=== PATIENT | female | born 2000 | race African-American/Black ===

== ENCOUNTER 2022-08-07 15:17 | Emergency (ER) | payer MEDICAID, SELFPAY ==
--- NOTE | ~2022-08-07 | US_ITS ---
EXAMINATION: ULTRASOUND CLINICAL INFORMATION: Right lower quadrant and pelvic pain COMPARISON: None TECHNIQUE: Transabdominal scanning was performed. FINDINGS: A gestational sac is present within the uterus. A yolk sac is identified and a pole with a crown-rump length of 1.8 cm is seen. A normal heart rate of 163/m was noted. Gestational age by ultrasound is estimated at 8 weeks 3 days with an YOLANDA of 03/16/2023. The right ovary measured 3.6 x 3.0 x 2.6 cm and appeared normal. The left ovary measured 3.2 x 3.1 x 2.7 cm which includes a 2.1 x 1.9 x 2.0 cm corpus luteal cyst. No free fluid is present in the cul-de-sac. US/US OB limited IMPRESSION: Early gestation with mean gestational age estimated at 8 weeks 3 days with YOLANDA of 03/16/2023
[2022-08-07 15:38] VITALS: BP 109/72; PULSE 65
[2022-08-07 15:43] VITALS: BP 114/57; PULSE 64; RESP 16; TEMP 37.3; O2SAT 100; BMI 27.3
[2022-08-07] MEDS: 0.9 % Sodium Chloride 1,000 ML 999 ML IV (17:04)
[2022-08-07] MEDS: ondansetron HCL 4 MG/2 ML VIAL IVPUSH ×2 (17:20→19:42)
--- NOTE | 2022-08-07 17:24 | ED.NAVMDI ---
HPI - Nausea/Vomiting/Diarrhea General Chief complaint: Nausea/Vomiting/Diarrhea Stated complaint: N/V/JARRETT/CP,RECENT + TEST PER EMS Time Seen by Provider: 08/07/22 15:49 Source: patient Mode of arrival: EMS History of Present Illness HPI Narrative: 22-year-old female, who comes in with reported headache, chest tightness and states that her LMP-06/10/2022 and took a home test approximately 4 days ago and noted that it was positive. She describes nausea, vomiting and is also having right lower quadrant/pelvic pain but denies any vaginal discharge or urinary pain/burning/frequency. EMS provided her with Zofran and fentanyl. Related Data Previous Rx's Medication Instructions Recorded pyridoxine (vitamin B6) 25 mg 25 mg PO TID #30 tabs 08/07/22 tablet Allergies Allergy/AdvReac Type Severity Reaction Status Date / Time No Known Allergies Allergy Verified 01/09/22 10:10 Review of Systems Review of Systems: Pertinent positives and negatives as stated in HPI 10 point review of systems otherwise negative. [facility] Past Medical History Source: nursing notes reviewed Medical History Anxiety disorder, unspecified Depression, major, recurrent, moderate Living in homeless correction Oral contraceptive use PTSD (post-traumatic stress disorder) Vaccination hesitancy by patient Family History Family History Mother No problems noted. Father Anxiety Asthma Brother No problems noted. Brother No problems noted. Brother No problems noted. Brother No problems noted. Sister No problems noted. Sister No problems noted. Sister No problems noted. Sister No problems noted. Son No problems noted. Social History Social History Advance Directives: No Advance Directives Information Provided: Yes Physical Exam Vital Signs: Vital Signs: Last Vital Signs Temp 99.1 F 08/07/22 15:43 Pulse 64 08/07/22 15:43 Resp 16 08/07/22 15:43 BP 114/57 L 08/07/22 15:43 Pulse Ox 100 08/07/22 15:43 O2 Del Method 08/07/22 15:43 BMI result Body Mass Index 27.3 VITAL SIGNS: Reviewed. GENERAL: Well developed, well nourished, in no acute distress. HEAD: Normocephalic/atraumatic EYES: PERRLA, EOMI EARS: Ext canals without abnormality OROPHARYNX: no oral lesions noted, posterior pharynx clear LUNGS: Normal breath sounds. No adventitious sounds or accessory muscle use. SpO2<100> CARDIOVASCULAR: Regular rate and rhythm without noted murmurs ABDOMEN: Soft, non-tender, non-distended with bowel sounds. MUSCULOSKELETAL: No tenderness, deformities, or effusions noted on gross inspection. EXTREMITIES: No cyanosis, clubbing or edema. SKIN: Inspection of the skin reveals no rashes NEUROLOGIC: Alert and oriented x 4. Strength and sensation to light touch were grossly intact x 4. Course Course Course Narrative: 22-year-old female with history and clinical presentation suggestive of and concern for possible ectopic. Review of all investigations negative for acute findings, patient received 1 L of IV fluids with antiemetics and on re-evaluation is feeling much better and tolerating oral intake. Ultrasound was negative for evidence of ectopic and there is an IUP at 8 weeks and 3 days. Patient was informed of all results. MDM - Nausea/Vomiting/Diarrhea Lab Data Labs: Lab Results 08/07/22 08/07/22 08/07/22 Range/Units 19:52 19:52 19:53 Urine Color Yellow Urine Appearance Clear Urine pH 6.0 (5.0-9.0) Ur Specific [place] 1.010 (1.005-1.025) Urine Protein Negative (Neg-Trace) mg/dL Urine Glucose (UA) Negative (Negative) mg/dL Urine Ketones 40 (Negative) mg/dL Urine Blood Negative (Negative) Urine Nitrite Negative (Negative) Ur Leukocyte Esterase Negative (Negative) Urine Test POSITIVE H (NEGATIVE) COVID-19 (JANEEN) Negative (Negative) COVID-19 Clin Com See Note Discharge Plan Discharge Clinical Impression: Nausea and vomiting during Patient Disposition: Home, Self-Care Instructions: Nausea and Vomiting in (ED), (ED) Additional Instructions: 1. Start taking vitamins. 2. Follow-up with the referral that you are receiving for OB. Return to the ER for worsening symptoms. Prescriptions: New pyridoxine (vitamin B6) 25 mg tablet 25 mg PO TID Qty: 30 0RF Referrals: Donn Norton MD [Physician] - (, 8.3 wks IUP, needs care. [facility]o vance)
[2022-08-07 20:04] LABS: Appearance Urine Clear; Color Urine Yellow; Glucose Urine UA Negative (Negative); Leukocyte Esterase Urine Negative (Negative); Nitrite Urine Negative (Negative); Urine Blood Negative (Negative); Urine Ketones 40 mg/dL (Negative); Urine Protein Negative (Neg-Trace)
[2022-08-07 20:05] LABS: UPreg QC Valid YES; Urine Pregnancy POSITIVE (NEGATIVE)
[2022-08-07 20:13] LABS: COVID-19 Test Negative (Negative)
--- NOTE | 2022-08-07 21:05 | PC.NURSE ---
pt tolerated po challange. pt asking to go home. skin pink warm and dry.
== END 2022-08-07 21:23 | disposition home or self-care (01) ==
PROVIDERS: Emergency Provider Student in an Organized Health Care Education/Training Program
DX: R10.31 Right lower quadrant pain (principal); R51.9 Headache, unspecified; R07.89 Other chest pain; Z20.822 Contact with and (suspected) exposure to COVID-19; Z79.899 Other long term (current) drug therapy
CPT/HCPCS: 76815; 81003; 81025; 87635; 96361; 96374; 96376; 99283; 99284; J2405